=== PATIENT | male | born 1930 | race Caucasian/White ===

== ENCOUNTER 2017-05-03 20:00 | Emergency (ER) | payer MEDICARE, OTHER ==
[~2017-05-03 20:00] MED LIST: traMADol 50 MG Tab PO ONE
[2017-05-03 20:05] VITALS: BP 141/79
[2017-05-03] MEDS ORDERED: Ketorolac 30 MG/ML SDV IM ONE (20:45)
[2017-05-03] MEDS ORDERED: methylPREDNISolone Sodium Succinate 125 MG/2 ML SDV IM ONE (20:46)
[2017-05-03] MEDS ORDERED: Take Home: traMADol 50 MG, 4 Tab Pack PO ONE (20:55)
--- NOTE | 2017-05-03 20:57 | EDM.PDOC ---
[id number] Complaint: left shoulder pain Time Seen by Provider: 05/03/17 20:29 Source of Information: Reports: Patient History Limitations: Reports: No Limitations - History of Present Illness INITIAL COMMENTS - FREE TEXT/NARRATIVE: Patient presents with complaints of left shoulder pain. States he has been having increased pain for about a year but it has progressively gotten worse. He saw Lv Tello in the clinic on April 24 and had a steroid injection in his shoulder at that time. States he did not feel he got any relief of the pain and it seems as it is getting even worse. Not able to lay in his bed due to pain or use his left arm much at all right now. No previous injury. Did have an xray done that day which showed moderate osteoarthritis. Has been using icy hot on his shoulder, not taken any medicine. Patient does not see any medical providers, "haven't felt the need to". Does live alone, has no real support person. is currently in the retirement. Onset: Gradual Duration: Week(s):, Getting Worse Location: Reports: Upper Extremity, Left Quality: Reports: Sharp Severity: Severe Improves with: Reports: Cold Therapy Worsens with: Reports: Movement Associated Symptoms: Reports: No Other Symptoms Treatments CNA LTC: Reports: Other (see below) Other Treatments CNA LTC: icy hot Left Shoulder Pain Score (Numeric/FACES): 6 - Related Data Allergies Allergy/AdvReac Type Severity Reaction Status Date / Time No Known Allergies Allergy Verified 05/03/17 20:12 Home Meds: Home Meds . [No Known Home Meds] 05/03/17 [History] Past Medical History HEENT History: Reports: Impaired Vision Musculoskeletal History: Reports: Other (See Below) Other Musculoskeletal History: shoulder pain - Past Surgical History GI Surgical History: Reports: Hernia, Abdominal Social & Family History - Tobacco Use Smoking Status *Q: Former Smoker Used Tobacco, but Quit: Yes Month Tobacco Last Used: 1960 - Caffeine Use Caffeine Use: Reports: Coffee - Alcohol Use Days Per Week of Alcohol Use: 7 Number of Drinks Per Day: 2 Total Drinks Per Week: 14 - Recreational Drug Use Recreational Drug Use: No Review of Systems - Review of Systems Review Of Systems: ROS reveals no pertinent complaints other than HPI. ED EXAM, GENERAL - Physical Exam Exam: See Below Exam Limited By: No Limitations General Appearance: Alert, WD/WN, Moderate Distress Neck: Normal Inspection, Supple, Non-Tender Extremities: Normal Inspection, Limited Range of Motion (increased pain with any movement of left shoulder. No redness or swelling. ), Other (tender to left trapezius muscle). No: Increased Warmth, Redness Neurological: Alert, Oriented Skin Exam: Warm, Dry Course - Vital Signs Last Recorded V/S: Last Vital Signs Temp 97.6 F 05/03/17 20:01 Pulse 100 05/03/17 20:01 Resp 18 05/03/17 20:01 BP 141/79 H 05/03/17 20:01 Pulse Ox 93 L 05/03/17 20:01 - Orders/Labs/Meds Meds: Medications Discontinued Medications Generic Name Dose Route Start Last Admin Trade Name Abi PRN Reason Stop Dose Admin Ketorolac Tromethamine 30 mg 05/03/17 20:45 05/03/17 20:50 Toradol IM 05/03/17 20:46 30 mg ONETIME ONE Administration Methylprednisolone Sodium Succinate 62.5 mg 05/03/17 20:46 05/03/17 20:51 Solu-Medrol IM 05/03/17 20:47 62.5 mg NOW ONE Administration Tramadol HCl 1 packet 05/03/17 20:55 05/03/17 21:03 Take Home: Tramadol 50 Mg, 4 Tab Pack PO 05/03/17 20:56 1 packet ONETIME ONE Administration Departure - Departure Time of Disposition: 21:05 Disposition: Home, Self-Care 01 Condition: Fair Clinical Impression: Left shoulder pain - Discharge Information Referrals: PCP,None [Primary Care Provider] - Forms: ED Department Discharge Additional Instructions: 1. Rest 2. Ice or heat to left shoulder as needed 3. Tramadol 50 mg every 6 hours for pain 4. See physical therapy 5. Follow up in clinic if continue to have pain, may need to either have further tests on your shoulder or see an orthopaedic (bone doctor) 6. Contact us with any concerns.
== END 2017-05-03 21:20 | disposition home or self-care (01) ==
LOC: CC.ED 20:00
DX: M25.512 Pain in left shoulder (principal); H54.7 Unspecified visual loss; Z87.891 Personal history of nicotine dependence
CPT/HCPCS: 96372; 99283; A9270; J1885; J2930

== ENCOUNTER 2017-05-22 10:02 | Inpatient (IN) | payer MEDICARE, OTHER, MEDICAID ==
--- NOTE | 2017-05-22 10:40 | EDM.PDOC ---
ED HPI GENERAL MEDICAL PROBLEM - General Chief Complaint: General Stated Complaint: weakness, pain Time Seen by Provider: 05/22/17 10:20 Source of Information: Reports: Patient History Limitations: Reports: No Limitations - History of Present Illness INITIAL COMMENTS - FREE TEXT/NARRATIVE: History and physical: History of present illness: [Patient comes to the emergency room via EMS complaining of weakness for the past 3 days. He states that his legs have not been working and he is unable to get around. States that he has been unable to get out of his chair for the past couple of days due to his weakness and a sensation of numbness in his bilateral lower legs. He denies falls, lightheadedness, and dizziness. No episodes of fainting or near fainting. He feels more tired than usual, but otherwise he has been feeling alright. Was seen in local clinic approx 3 weeks ago for L shoulder pain, at which time he was given a cortisone injection and a prescription for hydrocodone, which he takes only when needed. He denies recent illness and infection. Has not had fever or chills. He denies chest pain shortness of breath and difficulty breathing. No abdominal pain, nausea, vomiting, constipation or diarrhea. Last bowel movement was yesterday and was normal. Denies neck and back pain. Denies difficulty urinating and burning with urination. He has not been urinating as much as usual as he has not been drinking very much fluids recently. Denies confusion. He has had no numbness or tingling prior to development of numbness to his lower legs a couple of days ago. He does not have a local primary care provider other than being seen several weeks ago for cortisone injection to his left shoulder. Patient admits to drinking 2-3 beers per day for his entire adult life. Denies tobacco use. EMS staff report that for aspirin were given to patient in the ambulance in route to ER. Review of Systems: As per history of present illness and below otherwise all systems reviewed and negative. Past medical history: As per history of present illness and as reviewed below otherwise noncontributory. Surgical history: As per history of present illness and is reviewed below other cuellar noncontributory. Social history: No reported history of drug or alcohol abuse. Family history: As per history of present illness and is reviewed below otherwise noncontributory. Physical exam: Gen.: Normal-appearing elderly gentleman in no acute distress. He appears disheveled, unshaven and unshowered. HEENT: Atraumatic, normocephalic. Oral mucous membranes are pink and dry. PERRLA. Neck is supple, no lymphadenopathy. Lungs: Clear to auscultation, breath sounds equal bilaterally. No wheezing crackles or rales. Heart: S1-S2, regular rate and rhythm. No murmur gallop click or rub. Abdomen: Bowel sounds are normoactive throughout. Abdomen is soft and nondistended. he has mild suprapubic tenderness with palpation. Negative for masses, guarding and rebound. Negative for costovertebral tenderness. Pelvis: Stable, nontender. Genitourinary: Deferred. Rectal: Deferred. Extremities: atraumatic in appearance. No cyanosis or edema to feet or lower legs. Soles of feet appear mildly macerated and unkempt. No calf pain with palpation of lower legs. Sensation is intact.Neurovascular unremarkable. Neuro: Awake, alert, oriented. Hand promotional marketing agent strength is strong and equal bilaterally. Motor and sensory unremarkable throughout. Has full range of motion to lower extremities. No deficits noted on ambulation with walker. Exam nonfocal. Diagnostics: [CBC, CMP, urinalysis, urine culture, troponin, magnesium, chest x-ray, EKG] Impression: [Weakness dehydration elevated troponin] Plan: [Patient agreed with inpatient evaluation and treatment. He is placed in room 102 as an inpatient. EKG and lab results are related to this provider after patient is admitted. At that time cardiology consultation is obtained with Dr. Perez at [facility]. He agrees to accept patient in transport for elevated troponin and EKG showing bifascicular block. Urinalysis report was available after patient left with EMS for [place] showing acute UTI. Maria Victoria at [facility] is notified of these findings. Risks and benefits discussed with patient/family. Risks of transfer: Aircraft/ vehicle crash, worsening of condition, cardiac . Benefits of transfer: Specialized cardiac care and cardiac intervention. Risks of non-transfer: No specialized cardiac care/ interventions at local facility, , cardiac and worsening of condition. Benefits of non-transfer: Staying in familiar environment and close to home. Patient/family verbalize understanding and is in agreement with transfer.] Definitive disposition and diagnosis is appropriate pending reevaluation and review of above. Right Knee Pain Score (Numeric/FACES): 4 Left Shoulder Pain Score (Numeric/FACES): 8 - Related Data Allergies Allergy/AdvReac Type Severity Reaction Status Date / Time No Known Allergies Allergy Verified 05/22/17 10:09 Home Meds: Home Meds Hydrocodone/Acetaminophen [Hydrocodon-Acetaminophen 5-325] 1 tab PO Q6H PRN 02/03 [History] Past Medical History HEENT History: Reports: Impaired Vision Musculoskeletal History: Reports: Other (See Below) Other Musculoskeletal History: shoulder pain - Past Surgical History GI Surgical History: Reports: Hernia, Abdominal Social & Family History - Tobacco Use Smoking Status *Q: Former Smoker Used Tobacco, but Quit: Yes Month Tobacco Last Used: Last used in 1960 - Caffeine Use Caffeine Use: Reports: Coffee Caffeine Use Comment: 3 cups a day - Alcohol Use Days Per Week of Alcohol Use: 6 Number of Drinks Per Day: 2 Total Drinks Per Week: 12 Date of Last Drink: 05/21/17 Time of Last Drink: 15:00 - Recreational Drug Use Recreational Drug Use: No ED ROS GENERAL - Review of Systems Review Of Systems: ROS reveals no pertinent complaints other than HPI. ED EXAM, GENERAL - Physical Exam Exam: See Below Course - Vital Signs Last Recorded V/S: Last Vital Signs Temp 97.2 F 05/22/17 11:57 Pulse 77 05/22/17 11:57 Resp 18 05/22/17 11:57 BP 150/64 H 05/22/17 11:57 Pulse Ox 95 05/22/17 11:57 - Orders/Labs/Meds Orders: Active Orders 24 hr Category Date Time Status Patient Status [ADT] Routine ADT 05/22/17 11:57 Active Antiembolic Devices [RC] 1000,2200 Care 05/22/17 11:57 Active Cardiac Monitoring [RC] 0800,2000 Care 05/22/17 11:57 Active Height and Weight [RC] UPON Care 05/22/17 11:57 Active Oxygen Therapy [RC] .PRN Care 05/22/17 11:57 Active Up With Assistance [RC] .PRN Care 05/22/17 11:57 Active VTE/DVT Education [RC] PER UNIT ROUTINE Care 05/22/17 11:57 Active Vital Signs [RC] Q4H Care 05/22/17 11:57 Active OT Evaluation and Treatment [CONS] Routine Cons 05/22/17 11:57 Active PT Evaluation and Treatment [CONS] Routine Cons 05/22/17 11:57 Active Antiembolic Hose [OM.PC] Per Unit Routine Oth 05/22/17 11:57 Ordered Resuscitation Status Routine Resus Stat 05/22/17 10:42 Ordered Meds: Medications Discontinued Medications Generic Name Dose Route Start Last Admin Trade Name Freq PRN Reason Stop Dose Admin Acetaminophen 650 mg 05/22/17 11:57 Tylenol PO Q4H PRN Pain (Mild 1-3)/fever Hydrocodone Bitart/Acetaminophen 1 tab 05/22/17 11:57 05/22/17 12:41 [place] 325-5 Mg PO 1 tab Q4H PRN Administration Pain (moderate 4-6) Sodium Chloride 1,000 mls @ 999 mls/hr 05/22/17 11:57 05/22/17 12:15 Normal Saline IV 05/22/17 12:57 999 mls/hr ONETIME ONE Administration Sodium Chloride 1,000 mls @ 125 mls/hr 05/22/17 13:00 Normal Saline IV ASDIRECTED GERI Ibuprofen 600 mg 05/22/17 11:57 Motrin PO Q6H PRN Pain (mild 1-3) Departure - Departure Time of Disposition: 10:45 Disposition: Admitted As Inpatient 66 Condition: Good Clinical Impression: Weakness, Dehydration - Discharge Information - My Orders Last 24 Hours: My Active Orders 05/22/17 10:42 Resuscitation Status Routine 05/22/17 11:57 Patient Status [ADT] Routine Antiembolic Devices [RC] 1000,2200 Cardiac Monitoring [RC] 0800,2000 Height and Weight [RC] UPON Oxygen Therapy [RC] .PRN Up With Assistance [RC] .PRN VTE/DVT Education [RC] PER UNIT ROUTINE Vital Signs [RC] Q4H OT Evaluation and Treatment [CONS] Routine PT Evaluation and Treatment [CONS] Routine Antiembolic Hose [OM.PC] Per Unit Routine - Assessment/Plan Last 24 Hours: My Active Orders 05/22/17 10:42 Resuscitation Status Routine 05/22/17 11:57 Patient Status [ADT] Routine Antiembolic Devices [RC] 1000,2200 Cardiac Monitoring [RC] 0800,2000 Height and Weight [RC] UPON Oxygen Therapy [RC] .PRN Up With Assistance [RC] .PRN VTE/DVT Education [RC] PER UNIT ROUTINE Vital Signs [RC] Q4H OT Evaluation and Treatment [CONS] Routine PT Evaluation and Treatment [CONS] Routine Antiembolic Hose [OM.PC] Per Unit Routine
[2017-05-22] MEDS ORDERED: Acetaminophen/HYDROcodone 325-5 MG Tab PO PRN (11:57)
[2017-05-22] MEDS ORDERED: Ibuprofen 200 MG Tab PO PRN (11:57)
[2017-05-22] MEDS ORDERED: Sodium Chloride 0.9% 1,000 ML IV ONE (11:57)
[2017-05-22] MEDS ORDERED: Acetaminophen 325 MG Tab PO PRN (11:57)
[2017-05-22 12:22] LABS: CHLORIDE,CL 107 mEq/L (98-106); SODIUM,NA 142 mEq/L (136-145)
[2017-05-22] MEDS ORDERED: Sodium Chloride 0.9% 1,000 ML IV SCH (13:00)
[2017-05-22 13:21] VITALS: BP 150/64
--- NOTE | 2017-05-22 16:56 | PCM.PN ---
- General Info Date of Service: 05/22/17 Subjective Update: The patient was admitted this afternoon for generalized weakness and dehydration. After admission it was noted that he has an elevated troponin and bifascicular block on EKG. Dr. Perez at [facility] is consulted and agrees to accept patient for cardiology consultation. Patient is discharged from the hospital and transferred to [place] by [facility]. - Patient Data Vitals - most recent: Last Vital Signs Temp 97.2 F 05/22/17 11:57 Pulse 77 05/22/17 11:57 Resp 18 05/22/17 11:57 BP 150/64 H 05/22/17 11:57 Pulse Ox 95 05/22/17 11:57 Weight - most recent: 151 lb 14.4 oz I&O - last 24 hours: Intake & Output 05/22/17 05/22/17 05/22/17 06:59 14:59 22:59 Output Total 150 Balance -150 Lab Results last 24 hrs: Laboratory Results - last 24 hr 05/22/17 05/22/17 05/22/17 Range/Units 12:00 12:00 13:20 WBC 8.3 (5.0-10.0) 10^3/uL RBC 4.47 L (4.50-6.00) 10^6/uL Hgb 14.1 (14.0-18.0) g/dL Hct 42.0 (40.0-54.0) % MCV 94.0 (82.0-94.0) fL MCH 31.5 (27.0-32.0) pg MCHC 33.6 (33.0-38.0) g/dL RDW Coeff of Hal 14.6 (11.0-15.0) % Plt Count 151 (150-400) 10^3/uL Neut % (Auto) 79.3 (35-85) % Lymph % (Auto) 13.5 (10-55) % [place] % (Auto) 6.0 (0-16) % Eos % (Auto) 0.8 (0-5) % Baso % (Auto) 0.4 (0-3) % Neut # (Auto) 6.58 (1.80-7.00) 10^3/uL Lymph # (Auto) 1.12 (1.00-4.80) 10^3/uL [place] # (Auto) 0.50 (0.00-0.80) 10^3/uL Eos # (Auto) 0.07 (0.00-0.45) 10^3/uL Baso # (Auto) 0.03 10^3/uL Sodium 142 (136-145) mEq/L Potassium 3.7 (3.5-5.0) mEq/L Chloride 107 H (98-106) mEq/L Carbon Dioxide 28 (21-32) mmol/L BUN 23 H (7-18) mg/dL Creatinine 1.2 (0.7-1.3) mg/dL Est Cr Clr Drug Dosing TNP Estimated GFR (MDRD) 57 L (>=60) mL/min Glucose 103 H (75-99) mg/dL Calcium 9.6 (8.4-10.1) mg/dL Magnesium 2.2 (1.8-2.4) mg/dL Total Bilirubin 1.7 H (0.0-1.0) mg/dL AST 31 (15-37) U/L ALT 30 (12-78) U/L Alkaline Phosphatase 139 H (46-116) U/L Troponin I 0.066 H (0.00-0.06) ng/mL Total Protein 6.6 (6.4-8.2) g/dL Albumin 2.4 L (3.4-5.0) g/dL Urine Color [place] (YELLOW) Urine Appearance Cloudy (CLEAR) Urine pH 5.0 (4.5-8.0) Ur Specific [place] 1.022 H (1.003-1.020) Urine Protein Trace H (NEGATIVE) mg/dL Urine Glucose (UA) Negative (NEGATIVE) mg/dL Urine Ketones 15 H (NEGATIVE) mg/dL Urine Occult Blood Trace-lysed H (NEGATIVE) Urine Nitrite Positive H (NEGATIVE) Urine Bilirubin Small H (NEGATIVE) Urine Urobilinogen 4.0 H (0.2-1.0) EU/dL Ur Leukocyte Esterase Small H (NEGATIVE) Urine RBC Not seen (0-5) /HPF Urine WBC >100 H (0-5) /HPF Ur Epithelial Cells Few H (NOT SEEN) /HPF Urine Bacteria Many H (NOT SEEN) /HPF Hyaline Casts Few H (NOT SEEN) /LPF Med Orders - Current: Current Medications Discontinued Medications Acetaminophen (Tylenol) 650 mg PO Q4H PRN PRN Reason: Pain (Mild 1-3)/fever Hydrocodone Bitart/Acetaminophen ([place] 325-5 Mg) 1 tab PO Q4H PRN PRN Reason: Pain (moderate 4-6) Last Admin: 05/22/17 12:41 Dose: 1 tab Sodium Chloride (Normal Saline) 1,000 mls @ 999 mls/hr IV ONETIME ONE Stop: 05/22/17 12:57 Last Admin: 05/22/17 12:15 Dose: 999 mls/hr Sodium Chloride (Normal Saline) 1,000 mls @ 125 mls/hr IV ASDIRECTED GERI Ibuprofen (Motrin) 600 mg PO Q6H PRN PRN Reason: Pain (mild 1-3) - Problem List Review Problem List Initiated/Reviewed/Updated: Yes - My Orders Last 24 Hours: My Active Orders 05/22/17 11:57 Chest 1V Frontal [CR] Routine 05/22/17 13:15 CULTURE URINE [RM] Stat 05/22/17 13:40 Ready for Discharge [RC] PER UNIT ROUTINE
== END 2017-05-22 13:40 | DRG 948 ==
LOC: CC.ED 10:02 → CC.MS 10:47 → CC.ED 10:56 → UNDOADMIN 11:53 → CC.MS 11:53 → UNDOADMIN 11:57 → UNDODISIN 13:40
PROVIDERS: ADMIT Nurse Practitioner Family; ATTEND Family Medicine
DX: R53.1 Weakness (principal); I45.2 Bifascicular block; E86.0 Dehydration; Z87.891 Personal history of nicotine dependence; R74.8 Abnormal levels of other serum enzymes
CPT/HCPCS: 36415; 71010; 80053; 81001; 83735; 84484; 85025; 87086; 87088; 87186; 93005; 99285; A9270-GY; J7030

== ENCOUNTER 2017-05-26 09:40 | Inpatient (IN) | payer MEDICARE, OTHER, MEDICAID ==
[~2017-05-26 09:40] MED LIST changes: +Enoxaparin 30 MG/0.3 ML Syringe SUBCUT SCH; -traMADol 50 MG Tab PO ONE
[2017-05-26 10:36] LABS: CHLORIDE,CL 107 mEq/L (98-106); SODIUM,NA 143 mEq/L (136-145)
--- NOTE | 2017-05-26 12:05 | EDM.PDOC ---
ED HPI GENERAL MEDICAL PROBLEM - General Chief Complaint: General Stated Complaint: WEAKNESS, CHRONIC PAIN Time Seen by Provider: 05/26/17 10:30 Source of Information: Reports: Patient, Family History Limitations: Reports: No Limitations - History of Present Illness INITIAL COMMENTS - FREE TEXT/NARRATIVE: Arnulfo is an 86 yo male who presents to the ER via EMS with concerns of ongoing weakness. Family state he was discharged from [facility] yesterday after being transferred from our facility on the 22 of May. He had an elevated troponin with weakness and dehydration. Family feel he will need to go to fpc at this time. Home health was at Arnulfo's home today and felt he can't take care of himself. 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 Left Shoulder Pain Score (Numeric/FACES): 6 - Related Data Allergies Allergy/AdvReac Type Severity Reaction Status Date / Time No Known Allergies Allergy Verified 05/26/17 09:57 Home Meds: Home Meds . [No Known Home Meds] 05/26/17 [History] Past Medical History HEENT History: Reports: Cataract, Impaired Vision Gastrointestinal History: Reports: Hemorrhoids Genitourinary History: Reports: Urinary Incontinence Musculoskeletal History: Reports: Other (See Below) Other Musculoskeletal History: shoulder pain - Infectious Disease History Infectious Disease History: Reports: Shingles - Past Surgical History HEENT Surgical History: Reports: Cataract Surgery GI Surgical History: Reports: Hernia, Abdominal Musculoskeletal Surgical History: Reports: None Social & Family History - Family History Family Medical History: Noncontributory - Tobacco Use Smoking Status *Q: Former Smoker Used Tobacco, but Quit: Yes Month Tobacco Last Used: 1960 - Caffeine Use Caffeine Use: Reports: None Caffeine Use Comment: 3 cups a day - Alcohol Use Days Per Week of Alcohol Use: 6 Number of Drinks Per Day: 2 Total Drinks Per Week: 12 - Recreational Drug Use Recreational Drug Use: No ED ROS GENERAL - Review of Systems Review Of Systems: See Below Constitutional: Reports: Weakness, Fatigue, Decreased Appetite, Weight Loss. Denies: Fever, Chills HEENT: Reports: No Symptoms Respiratory: Denies: Shortness of Breath, Wheezing, Cough Cardiovascular: Denies: Chest Pain, Edema, Palpitations, Syncope GI/Abdominal: Reports: Constipation, Flatus, Other. Denies: Abdominal Pain, Diarrhea, Hematochezia, Melena : Reports: No Symptoms. Denies: Discharge, Dysuria, Flank Pain, Frequency, Hematuria, Urgency Musculoskeletal: Reports: Shoulder Pain (left, chronic for last year or so) Skin: Reports: No Symptoms Neurological: Reports: Difficulty Walking, Weakness. Denies: Dizziness, Headache, Numbness, Paresthesia, Trouble Speaking, Change in Speech ED EXAM, GENERAL - Physical Exam Exam: See Below Exam Limited By: No Limitations General Appearance: Lethargic, Mild Distress Eye Exam: Bilateral Eye: Normal Inspection, PERRL Ears: Normal External Exam, Normal Canal, Hearing Grossly Normal, Normal TMs Nose: Normal Inspection, No Blood Throat/Mouth: Normal Inspection, Normal Lips, Normal Gums, Normal Oropharynx, No Airway Compromise Head: Atraumatic, Normocephalic Neck: Normal Inspection, Supple, Non-Tender Respiratory/Chest: No Respiratory Distress, Lungs Clear, No Accessory Muscle Use , Decreased Breath Sounds (right apex). No: Crackles, Rales, Rhonchi, Wheezing Cardiovascular: Normal Peripheral Pulses, Regular Rate, Rhythm, No Edema, No Murmur GI/Abdominal: Normal Bowel Sounds, Soft, Non-Tender, No Organomegaly, No Distention Extremities: Normal Inspection, No Pedal Edema Neurological: Alert, Oriented, Normal Cognition, No Motor/Sensory Deficits Psychiatric: Normal Affect, Normal Mood Skin Exam: Warm, Dry, Intact EKG INTERPRETATION Rhythm: Other (NSR with PAC) Comparison: No Change Course - Vital Signs Last Recorded V/S: Last Vital Signs Temp 96.7 F 05/26/17 11:39 Pulse 92 05/26/17 11:39 Resp 20 05/26/17 11:39 BP 155/66 H 05/26/17 11:39 Pulse Ox 94 L 05/26/17 11:39 - Orders/Labs/Meds Orders: Active Orders 24 hr Category Date Time Status CULTURE URINE [RM] Stat Lab 05/26/17 10:21 Ordered Labs: Laboratory Tests 05/26/17 05/26/17 05/26/17 Range/Units 10:01 10:01 10:21 WBC 7.4 (5.0-10.0) 10^3/uL RBC 4.43 L (4.50-6.00) 10^6/uL Hgb 14.0 (14.0-18.0) g/dL Hct 41.3 (40.0-54.0) % MCV 93.2 (82.0-94.0) fL MCH 31.6 (27.0-32.0) pg MCHC 33.9 (33.0-38.0) g/dL RDW Coeff of Hal 14.8 (11.0-15.0) % Plt Count 155 (150-400) 10^3/uL Neut % (Auto) 75.1 (35-85) % Lymph % (Auto) 17.4 (10-55) % [place] % (Auto) 5.6 (0-16) % Eos % (Auto) 1.5 (0-5) % Baso % (Auto) 0.4 (0-3) % Neut # (Auto) 5.53 (1.80-7.00) 10^3/uL Lymph # (Auto) 1.28 (1.00-4.80) 10^3/uL [place] # (Auto) 0.41 (0.00-0.80) 10^3/uL Eos # (Auto) 0.11 (0.00-0.45) 10^3/uL Baso # (Auto) 0.03 10^3/uL Sodium 143 (136-145) mEq/L Potassium 3.5 (3.5-5.0) mEq/L Chloride 107 H (98-106) mEq/L Carbon Dioxide 26 (21-32) mmol/L BUN 16 (7-18) mg/dL Creatinine 1.1 (0.7-1.3) mg/dL Est Cr Clr Drug Dosing 45.53 mL/min Estimated GFR (MDRD) > 60 (>=60) mL/min Glucose 99 (75-99) mg/dL Calcium 9.8 (8.4-10.1) mg/dL Total Bilirubin 1.8 H (0.0-1.0) mg/dL AST 41 H (15-37) U/L ALT 35 (12-78) U/L Alkaline Phosphatase 139 H (46-116) U/L C-Reactive Protein 3.7 H (0.2-0.8) mg/dL Total Protein 6.7 (6.4-8.2) g/dL Albumin 2.5 L (3.4-5.0) g/dL Urine Color [place] (YELLOW) Urine Appearance Slightly cloudy (CLEAR) Urine pH 5.0 (4.5-8.0) Ur Specific [place] 1.020 (1.003-1.020) Urine Protein Negative (NEGATIVE) mg/dL Urine Glucose (UA) 100 H (NEGATIVE) mg/dL Urine Ketones 15 H (NEGATIVE) mg/dL Urine Occult Blood Trace-intact H (NEGATIVE) Urine Nitrite Negative (NEGATIVE) Urine Bilirubin Small H (NEGATIVE) Urine Urobilinogen 4.0 H (0.2-1.0) EU/dL Ur Leukocyte Esterase Negative (NEGATIVE) Urine RBC Not seen (0-5) /HPF Urine WBC Not seen (0-5) /HPF Ur Squamous Epith Cells Few H (NOT SEEN) /HPF Urine Mucus Few H (NOT SEEN) /HPF Departure - Departure Time of Disposition: 11:15 Disposition: Admitted As Inpatient 66 Condition: Undetermined Clinical Impression: Weakness, Dehydration, Mass of right lung - Discharge Information - Problem List & Annotations (1) Weakness SNOMED Code(s): 92372905 Code(s): R53.1 - WEAKNESS Status: Acute Current Visit: Yes (2) Dehydration SNOMED Code(s): 19140397 Code(s): E86.0 - DEHYDRATION Status: Acute Current Visit: Yes (3) Mass of right lung SNOMED Code(s): 667153798 Code(s): R91.8 - OTHER NONSPECIFIC ABNORMAL FINDING OF LUNG FIELD Status: Acute Current Visit: Yes - Problem List Review Problem List Initiated/Reviewed/Updated: Yes - My Orders Last 24 Hours: My Active Orders 05/26/17 10:21 CULTURE URINE [RM] Stat - Assessment/Plan Admission H&P: Please use this note as an admission H&P Last 24 Hours: My Active Orders 05/26/17 10:21 CULTURE URINE [RM] Stat Plan: Consulted with Dr. Anna in regards to Arnulfo's condition. Will admit to his services under acute care for IV fluids. Will proceed with psych social worker consult for fpc placement as well. Family notified and agreed with admission.
[2017-05-26] MEDS ORDERED: Acetaminophen 325 MG Tab PO PRN (12:18)
[2017-05-26] MEDS: Enoxaparin 40 MG/0.4 ML Syringe SUBCUT SCH (15:36)
[2017-05-26] MEDS: Sodium Chloride 0.9% 1,000 ML IV SCH (15:36)
[2017-05-26] MEDS: Menthol/Zinc Oxide Ointment 113 GM Tube TOP SCH (15:40)
[2017-05-26] MEDS: Acetaminophen/HYDROcodone 325-5 MG Tab PO PRN (15:48)
[2017-05-27] MEDS: Menthol/Zinc Oxide Ointment 113 GM Tube TOP SCH ×3 (00:10→20:01)
[2017-05-27 07:50] LABS: CHLORIDE,CL 111 mEq/L (98-106); SODIUM,NA 145 mEq/L (136-145)
[2017-05-27] MEDS: Enoxaparin 40 MG/0.4 ML Syringe SUBCUT SCH (09:48)
[2017-05-27] MEDS: Acetaminophen/HYDROcodone 325-5 MG Tab PO PRN ×2 (09:49→23:27)
[2017-05-27] MEDS: Sodium Chloride 0.9% 1,000 ML IV SCH ×2 (10:37→20:01)
--- NOTE | 2017-05-27 13:25 | PCM.PN ---
- General Info Date of Service: 05/27/17 (Sitting up in bed watching TV. Denies any discomfort or SOB at this time. Nursing noted that patient stated last night that he did not want to live anymore. Patient denies those feeling now. i spoke at length with him about the possibility of going to the snf, and he agreed that it would be a good idea. Will arrange to start the placement process for snf.) Admission Dx/Problem (Free Text): Generalized weakness. - Review of Systems General: Reports: No Symptoms Pulmonary: Reports: no symptoms Cardiovascular: Reports: No Symptoms Gastrointestinal: Reports: No symptoms Genitourinary: Reports: no symptoms Musculoskeletal: Reports: no symptoms Skin: Reports: no symptoms Neurological: Reports: No Symptoms Psychiatric: Reports: no symptoms - Patient Data Vitals - most recent: Last Vital Signs Temp 97.2 F 05/27/17 12:00 Pulse 80 05/27/17 12:00 Resp 18 05/27/17 12:00 BP 151/76 H 05/27/17 12:00 Pulse Ox 91 L 05/27/17 12:00 Weight - most recent: 149 lb I&O - last 24 hours: Intake & Output 05/26/17 05/27/17 05/27/17 22:59 06:59 14:59 Intake Total 951 Balance 951 Lab Results last 24 hrs: Laboratory Results - last 24 hr 05/27/17 Range/Units 07:15 Sodium 145 (136-145) mEq/L Potassium 3.6 (3.5-5.0) mEq/L Chloride 111 H (98-106) mEq/L Carbon Dioxide 28 (21-32) mmol/L BUN 15 (7-18) mg/dL Creatinine 1.0 (0.7-1.3) mg/dL Est Cr Clr Drug Dosing 49.75 mL/min Estimated GFR (MDRD) > 60 (>=60) mL/min Glucose 100 H (75-99) mg/dL Calcium 9.2 (8.4-10.1) mg/dL C-Reactive Protein 3.1 H (0.2-0.8) mg/dL Med Orders - Current: Current Medications Acetaminophen (Tylenol) 650 mg PO Q4H PRN PRN Reason: Pain (Mild 1-3)/fever Hydrocodone Bitart/Acetaminophen ([place] 325-5 Mg) 1 tab PO Q4H PRN PRN Reason: Pain (moderate 4-6) Last Admin: 05/27/17 09:49 Dose: 1 tab Calamine/Phenol (Calmoseptine) 0 gm TOP BID [facility] Last Admin: 05/27/17 09:48 Dose: 1 applic Enoxaparin Sodium (Lovenox) 40 mg SUBCUT Q24H [facility] Last Admin: 05/27/17 09:48 Dose: 40 mg Sodium Chloride (Normal Saline) 1,000 mls @ 50 mls/hr IV ASDIRECTED [facility] Last Admin: 05/27/17 10:37 Dose: 50 mls/hr - Problem List Review Problem List Initiated/Reviewed/Updated: Yes
[2017-05-28] MEDS: Menthol/Zinc Oxide Ointment 113 GM Tube TOP SCH ×2 (07:54→20:13)
[2017-05-28] MEDS: Enoxaparin 40 MG/0.4 ML Syringe SUBCUT SCH (07:54)
[2017-05-28] MEDS: Sodium Chloride 0.9% 1,000 ML IV SCH ×2 (07:55→18:00)
--- NOTE | 2017-05-28 11:31 | PCM.PN ---
- General Info Date of Service: 05/28/17 Admission Dx/Problem (Free Text): Sitting up in a chair watching tv. C/o shoulder and butt pain from sitting to much. Instructed I would have him get up and start ambulating today. No acute distress noted. Functional Status: Reports: pain controlled - Review of Systems General: Reports: No Symptoms HEENT: Reports: no symptoms Pulmonary: Reports: no symptoms Cardiovascular: Reports: No Symptoms Gastrointestinal: Reports: No symptoms Musculoskeletal: Reports: no symptoms, shoulder pain Skin: Reports: no symptoms Neurological: Reports: No Symptoms Psychiatric: Reports: no symptoms - Patient Data Vitals - most recent: Last Vital Signs Temp 96.8 F 05/28/17 08:00 Pulse 67 05/28/17 08:00 Resp 16 05/28/17 08:00 BP 136/67 05/28/17 08:00 Pulse Ox 95 05/28/17 08:00 Weight - most recent: 149 lb I&O - last 24 hours: Intake & Output 05/27/17 05/28/17 05/28/17 22:59 06:59 14:59 Intake Total 635 1000 Balance 635 1000 Lab Results last 24 hrs: Laboratory Results - last 24 hr 05/28/17 Range/Units 07:00 C-Reactive Protein 2.6 H (0.2-0.8) mg/dL Med Orders - Current: Current Medications Acetaminophen (Tylenol) 650 mg PO Q4H PRN PRN Reason: Pain (Mild 1-3)/fever Hydrocodone Bitart/Acetaminophen ([place] 325-5 Mg) 1 tab PO Q4H PRN PRN Reason: Pain (moderate 4-6) Last Admin: 05/27/17 23:27 Dose: 1 tab Calamine/Phenol (Calmoseptine) 0 gm TOP BID [facility] Last Admin: 05/28/17 07:54 Dose: 1 applic Enoxaparin Sodium (Lovenox) 40 mg SUBCUT Q24H [facility] Last Admin: 05/28/17 07:54 Dose: 40 mg Sodium Chloride (Normal Saline) 1,000 mls @ 100 mls/hr IV ASDIRECTED [facility] Last Admin: 05/28/17 07:55 Dose: 100 mls/hr - Problem List Review Problem List Initiated/Reviewed/Updated: Yes - My Orders Last 24 Hours: My Active Orders 05/29/17 07:00 CBC WITH AUTO DIFF [HEME] Routine CMP [COMPREHENSIVE METABOLIC PN,CMP] [CHEM] Routine
[2017-05-28] MEDS: Acetaminophen/HYDROcodone 325-5 MG Tab PO PRN (20:13)
[2017-05-28] MEDS: Ibuprofen 200 MG Tab PO PRN (20:13)
[2017-05-29] MEDS: Ibuprofen 200 MG Tab PO PRN (04:23)
[2017-05-29] MEDS: Enoxaparin 40 MG/0.4 ML Syringe SUBCUT SCH (07:46)
[2017-05-29] MEDS: Menthol/Zinc Oxide Ointment 113 GM Tube TOP SCH ×2 (07:47→19:45)
[2017-05-29 08:14] LABS: CHLORIDE,CL 107 mEq/L (98-106); SODIUM,NA 140 mEq/L (136-145)
[2017-05-29] MEDS: Meloxicam 7.5 MG Tab PO SCH (12:58)
[2017-05-29] MEDS: cefTRIAXone 1 GM Vial IVPUSH SCH (13:29)
[2017-05-29] MEDS: NS + KCl 20mEq/L 1,000 ML IV SCH (15:12)
[2017-05-29] MEDS: Morphine 2 MG/ML Syringe IVPUSH PRN (17:54)
[2017-05-29] MEDS: Acetaminophen/HYDROcodone 325-5 MG Tab PO PRN (19:44)
[2017-05-30] MEDS: NS + KCl 20mEq/L 1,000 ML IV SCH (05:36)
--- NOTE | 2017-05-30 07:21 | PN ---
DATE: 05/29/2017 S: Mr. Brown was admitted for weakness and inability to care for himself at home. He has a recent diagnosis of lung CA with apparent mets to chest and shoulder. I had a long conversation with him and his [id number]. He does not want anything done. He basically wants to peacefully at the retirement where his is and working on transfer to [facility]. For the most part he has been stable while here, has not had any significant vital sign irregularity other than some mildly elevated blood pressures. He is having a lot of skeletal pain. O: GENERAL: He is pleasant and cooperative. Slightly confused. HEENT: Benign. NECK: Neck veins are flat. RESPIRATORY: His lung sounds are diminished, but no audible rales. HEART: Cardiac tones appear irregular consistent with an AFib. ABDOMEN: Soft. He has no peripheral edema. ASSESSMENT: 1. LUNG CANCER WITH METASTASIS. 2. RECENT URINARY TRACT INFECTION, CURRENTLY NOT BEING TREATED. 3. LIKELY ATRIAL FIBRILLATION. P: The patient is not a candidate for anticoagulation given his current status. We will keep him on subcu Lovenox for DVT prophylaxis. I am going to put him on Mobic for skeletal pain. They should be giving him morphine as needed for his pain. I will give him Rocephin for his prior UTI was sensitive to that, I believe it was Klebsiella, and we will await on retirement placement. REMEDIOS/ROSENDA /[id number]
[2017-05-30] MEDS: Enoxaparin 40 MG/0.4 ML Syringe SUBCUT SCH (07:37)
[2017-05-30] MEDS: cefTRIAXone 1 GM Vial IVPUSH SCH (07:38)
[2017-05-30] MEDS: Meloxicam 7.5 MG Tab PO SCH (07:38)
[2017-05-30] MEDS: Menthol/Zinc Oxide Ointment 113 GM Tube TOP SCH (07:39)
[2017-05-30 07:50] LABS: CHLORIDE,CL 107 mEq/L (98-106); SODIUM,NA 138 mEq/L (136-145)
[2017-05-30 08:13] VITALS: BP 146/75
[2017-05-30] MEDS: Morphine 2 MG/ML Syringe IVPUSH PRN (09:17)
--- NOTE | 2017-05-31 07:27 | DISCH ---
ADMISSION DIAGNOSES: 1. Weakness. 2. Dehydration. 3. Lung cancer with bony metastasis. 4. Possible urinary tract infection. DISCHARGE DIAGNOSIS: 1. LUNG CANCER WITH BONY METASTASIS. 2. DEHYDRATION. 3. HYPOKALEMIA. 4. COMFORT CARES. 5. URINARY TRACT INFECTION. HISTORY: The patient is an 86-year-old male, who has had a general decline. He has been having some left shoulder pain and has been seen as an outpatient by few different providers. Apparently, L[facility] Tello sent him to [facility] recently where he was sent home with a diagnosis of lung mass with likely metastatic disease in his chest and left shoulder. There was potential followup with biopsy and Oncology consult is pending. The patient was discharged on and was found in his home on Monday unable to take care of himself, was brought in by family members. At the time of evaluation showed evidence of dehydration and there was potential for UTI and he was admitted for general malaise, weakness, and dehydration. HOSPITAL COURSE: The patient was started on IV fluids, given medicines for pain control, monitored over the course of his stay. He has clinically been stable. We have had him on IV fluids. He did get hypokalemic on admit. He has had some IV potassium replacement and his potassium was up to the lower limits of normal. We will start him on oral replacement at this time. I started him on an anti- inflammatory due to his bony metastasis and he has had some relief. He is to use p.r.n. morphine and [place]. He did have a positive UTI around 05/23/2017. At that time, he was transferred to [facility], which grew out Klebsiella. 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 At this time, the patient has made it very clear he does not want anything more aggressive done with regard to his malignancy. He does not want transfer back to [facility], Oncology consult, or biopsy. He is adamant about comfort cares. His is in [facility] and that is where he would like to be for his terminal cares. We have put in a hospice consult. He is going to go to swing bed at this time for strengthening and further IV antibiotics. On the date of his discharge to swing bed, he does have some left upper extremity swelling, which was not noticed by nursing staff or myself yesterday. I am going to try to get a duplex of his arm at this time. COMPLICATIONS: During the stay were none. CONSULTATIONS: PT. DISPOSITION: Transfer to swing bed. HARRIETT /[id number]
== END 2017-05-30 10:14 | disposition swing bed (61) | DRG 948 ==
LOC: CC.ED 09:40 → CC.MS 11:31 → UNDOADMIN 11:31 → CC.MS 12:18
PROVIDERS: ADMIT Physician Assistant Medical; ATTEND Family Medicine
DX: R53.1 Weakness (principal); C34.90 Malignant neoplasm of unspecified part of unspecified bronchus or lung; C79.51 Secondary malignant neoplasm of bone; N39.0 Urinary tract infection, site not specified; E86.0 Dehydration; Z87.891 Personal history of nicotine dependence; B96.1 Klebsiella pneumoniae [K. pneumoniae] as the cause of diseases classified elsewhere; Z51.5 Encounter for palliative care; E87.6 Hypokalemia; H54.7 Unspecified visual loss; M25.512 Pain in left shoulder
CPT/HCPCS: 36415; 73030-LT; 80048; 80053; 81001; 85025; 86140; 87086; 93005; 93010; 93971-LT; 97161-GP; 99285; A9270-GY; J0696; J1650; J2270; J3480; J7030

== ENCOUNTER 2017-05-30 10:15 | Inpatient (IN) | payer MEDICARE, OTHER ==
[2017-05-30] MEDS ORDERED: Sodium Chloride 0.9% 10 ML Syringe FLUSH PRN (11:42)
[2017-05-30] MEDS ORDERED: Ondansetron 4 MG Tab.DIS PO PRN (11:42)
[2017-05-30] MEDS ORDERED: Temazepam 15 MG Cap PO PRN (11:42)
[2017-05-30] MEDS ORDERED: cefTRIAXone 1 GM Vial IM ONE (11:46)
[2017-05-30] MEDS: Menthol/Zinc Oxide Ointment 113 GM Tube TOP SCH (19:58)
[2017-05-31] MEDS: Morphine 2 MG/ML Syringe IVPUSH PRN ×4 (01:07→21:09)
[2017-05-31] MEDS: Meloxicam 7.5 MG Tab PO SCH (07:33)
[2017-05-31] MEDS: Enoxaparin 40 MG/0.4 ML Syringe SUBCUT SCH (07:33)
[2017-05-31] MEDS: Menthol/Zinc Oxide Ointment 113 GM Tube TOP SCH (07:34)
[2017-05-31] MEDS ORDERED: cefTRIAXone 1 GM Vial IM SCH (08:00)
[2017-05-31] MEDS ORDERED: cefTRIAXone 1 GM Vial IVPUSH SCH (09:57)
[2017-05-31] MEDS: cefTRIAXone 1 GM Vial IVPUSH SCH (11:45)
[2017-05-31] MEDS: Potassium Chloride 10 MEQ Tab.ER PO SCH (17:21)
[2017-06-01] MEDS: Menthol/Zinc Oxide Ointment 113 GM Tube TOP SCH ×3 (04:35→20:08)
[2017-06-01] MEDS: Potassium Chloride 10 MEQ Tab.ER PO SCH (08:19)
[2017-06-01] MEDS: cefTRIAXone 1 GM Vial IVPUSH SCH (08:20)
[2017-06-01] MEDS: Acetaminophen/HYDROcodone 325-5 MG Tab PO PRN ×3 (08:20→17:34)
[2017-06-01] MEDS: Docusate Sodium 100 MG Cap PO PRN ×2 (08:20→20:08)
[2017-06-01] MEDS: Enoxaparin 40 MG/0.4 ML Syringe SUBCUT SCH (08:20)
[2017-06-01] MEDS: Meloxicam 7.5 MG Tab PO SCH (08:20)
[2017-06-01] MEDS: Morphine 2 MG/ML Syringe IVPUSH PRN ×2 (13:26→20:09)
[2017-06-02] MEDS: Acetaminophen/HYDROcodone 325-5 MG Tab PO PRN ×2 (00:19→06:10)
[2017-06-02] MEDS: Morphine 2 MG/ML Syringe IVPUSH PRN (03:32)
[2017-06-02 07:48] VITALS: BP 123/84
[2017-06-02] MEDS: cefTRIAXone 1 GM Vial IVPUSH SCH (08:05)
[2017-06-02] MEDS: Meloxicam 7.5 MG Tab PO SCH (08:06)
[2017-06-02] MEDS: Potassium Chloride 10 MEQ Tab.ER PO SCH (08:06)
[2017-06-02] MEDS: Enoxaparin 40 MG/0.4 ML Syringe SUBCUT SCH (08:06)
--- NOTE | 2017-06-02 12:48 | DISCH ---
ADMISSION DIAGNOSIS: Lung cancer with metastasis. DISCHARGE DIAGNOSIS: LUNG CANCER WITH METASTASIS. HISTORY: The patient is an 86-year-old male admitted for general weakness, pain and failure to thrive after coming home from [place] where he had been transferred for what sounds like lung CA. He was initially set for biopsies and treatment which he is now declining. When he came to our facility, he was unable to care for himself, having a lot of pain, he was admitted for IV pain control. The patient did stay in acute care and because he was waiting placement and requiring further cares, we elected to put him in swing bed. . SWING BED COURSE: The patient was stable. While here we did initiate him on anti-inflammatory to help with his bony mets to his shoulder and back. He had improvement in his pain. He is using [place] p.r.n. and does have p.r.n. morphine order. Otherwise other than a low potassium level which is being corrected with oral potassium replacement, he was stable while here. He has hospice consult in place. He is going to the [facility] at [facility] for terminal cares. I believe at some point he is hoping to get to [facility] where his resides. COMPLICATIONS: During his stay were none. CONSULTATIONS: Social Work, PT, OT. DISPOSITION: Discharged to [facility]. REMEDIOS/ROSENDA /[id number]
== END 2017-06-02 10:07 | DRG 690 ==
LOC: CC.MS 10:15 → UNDOADMIN 10:15 → CC.MS 11:42
PROVIDERS: ADMIT Family Medicine; ATTEND Family Medicine
DX: N39.0 Urinary tract infection, site not specified (principal); C79.51 Secondary malignant neoplasm of bone; C34.90 Malignant neoplasm of unspecified part of unspecified bronchus or lung; B96.1 Klebsiella pneumoniae [K. pneumoniae] as the cause of diseases classified elsewhere; R53.1 Weakness; G89.3 Neoplasm related pain (acute) (chronic); E87.6 Hypokalemia; R62.7 Adult failure to thrive; R32 Unspecified urinary incontinence; Z87.891 Personal history of nicotine dependence; Z51.5 Encounter for palliative care
CPT/HCPCS: 97110-GP; A9270-GY; J0696; J1650; J2270